=== PATIENT | female | born 1970 | race Two or more races ===

== ENCOUNTER → 2019-09-28 | Outpatient (CLI) | payer OTHER | END | disposition home or self-care (01) | LOC: RAD 11:50 | DX: R15.9 Full incontinence of feces (principal); N39.46 Mixed incontinence ==

== ENCOUNTER 2019-10-25 06:20 | Day surgery (SDC) | payer OTHER ==
[~2019-10-25 06:20] MED LIST: BUSPAR PO; RISPERDAL0.5 MG PO; SYNTHROID88 MCG PO; ZOLOFT100 MG PO
[2019-10-25] MEDS ORDERED: ULTRACET PO (13:14)
== END 2019-10-25 15:40 | disposition home or self-care (01) ==
LOC: CIR.AMB 06:20
DX: R15.9 Full incontinence of feces (principal); N39.46 Mixed incontinence